=== PATIENT | male | born 1975 | race Two or more races ===

== ENCOUNTER 2022-02-15 19:41 | Emergency (ER) | payer SELFPAY ==
[~2022-02-15] VITALS: Ht 167.6 cm; Wt 79.4 kg
--- NOTE | 2022-02-15 20:15 | NUR ---
TO ER BED 9. BIBSELF C/O LAC X1DAY ON RIGHT 4TH DIGIT. PT STATES "WAS CUTTING FISH". NO ACTIVE BLEEDING NOTED. WOUND KEPT CLEAN. RR EVEN AND NON LABORED. CONNECTED TO MONITOR. AWAITING MD SALMERON
[2022-02-15] MEDS ORDERED: BUPIVACAINE HCL/PF 50 MG/10 ML VIAL IJ ONE (20:30)
[2022-02-15] MEDS ORDERED: BUPIVACAINE 0.5 % PF 150 MG/30 ML VIAL ONE (20:33)
[2022-02-15] MEDS ORDERED: CEPH500C2 PO (22:11)
--- NOTE | 2022-02-15 22:12 | NUR ---
STITCHES TO PT'S R 4TH FINGER DONE BY DR. STEELE
--- NOTE | 2022-02-15 22:20 | NUR ---
Patient discharged to home in stable condition. Written and verbal after care instructions given. Patient verbalizes understanding of instruction.
[2022-02-15 22:21] VITALS: BP 118/74
== END 2022-02-15 22:22 | disposition home or self-care (01) ==
LOC: ER 19:44
DX: S61.214A Laceration without foreign body of right ring finger without damage to nail, initial encounter (principal); W26.0XXA Contact with knife, initial encounter; Y93.89 Activity, other specified; Y92.89 Other specified places as the place of occurrence of the external cause; Y99.8 Other external cause status
CPT/HCPCS: 99284; 12032; 73120; J3490; A6403